=== PATIENT | female | born 1930 | race Caucasian/White ===

== ENCOUNTER 2017-03-26 10:33 | Inpatient (IN) | payer MEDICARE ==
[2017-03-26] VITALS (18 sets, daily range): BP systolic 116–167; BP diastolic 60–95; PULSE 61–78; RESP 10–20; O2SAT 93–98
[~2017-03-26] VITALS: Ht 160 cm; Wt 47.4 kg
[~2017-03-26 10:33] MED LIST: COM10 PO; LEVOXYL75 MCG PO; LORA-781 PO; ONDA4TAB12 PO; RABE20TA PO; TYL325 PO; ULTRAM50 MG PO
[2017-03-26] MEDS: HYDROmorphone 0.5 mg/0.5 mL iSecure Syringe IVPUSH PRN ×5 (10:49→15:40)
--- NOTE | 2017-03-26 11:27 | ED.REPORT ---
HPI-Hip/Pelvis Prob/Inj Date of Service Mar 26, 2017 ED Provider: Oumar Josue MD Patient is an 86 year old female with a hx of cancer, thyroid disease, and HTN who presents to the ED via EMS s/p tripping and falling just prior to arrival. Associated symptoms include L hip pain and lacerations over the left long and ring finger. She denies hitting her head. She denies headache, nausea, vomiting , LOC, or any other symptoms. She received 200 fentanyl en route. She last ate at 0800 this morning. Nursing Notes Stated Complaint: GLF/LEFT HIP PAIN Chief Complaint: Extremity Trauma Nursing Notes Reviewed: Yes Allergies: Coded Allergies: Sulfa (Sulfonamide Antibiotics) (Verified Allergy, Mild, Nausea, 03/26/17) ampicillin (Verified Allergy, Mild, Nausea, 03/26/17) Penicillins (Verified Allergy, Unknown, STOMACH UPSET, 03/26/17) codeine (Verified Allergy, Unknown, 03/26/17) Scheduled ([eye antioxident]) DAILY Acetaminphen-Expunged Drug, Do Not Renew! (Acetaminphen-Expunged Drug, Do Not Renew!) 325 Mg Tablet 650 MG PO HS Glucosamine Sulfate 2Kcl (Glucosamine) 1,000 Mg Tablet 1,500 MG PO DAILY Levothyroxine (Levothyroxine) 50 Mcg Tablet 50 MCG PO DAILY Lipase/Protease/Amylase (Creon DR) 12,000 Unit Capsule 1 CAPSULE PO TIDWM Losartan Potassium (Losartan Potassium) 50 Mg Tablet 50 MG PO DAILY Pilocarpine (Pilocarpine) 5 Mg Tablet 5 MG PO BID Potassium Chloride ER (Klor-Con 10) 10 Meq Tablet 10 MEQ PO DAILY Rabeprazole-Expunged Drug, Do Not Renew! (Rabeprazole-Expunged Drug, Do Not Renew!) 20 Mg Tablet.dr 20 MG PO AM Tramadol-Expunged Drug, Do Not Renew! (Ultram-Expunged Drug, Do Not Renew!) 50 Mg Tab 50 MG PO Q3-4HP Scheduled PRN Lorazepam-Expunged Drug, Do Not Renew! (Lorazepam-Expunged Drug, Do Not Renew!) 2 Mg Tablet 0.25 MG PO PRN Ondansetron (Ondansetron Odt) 4 Mg/Udtablet Tab.rapdis 8 MG PO PRN ProchlorPERazine (Compazine) 10 Mg Tab 10 MG PO PRN Miscellaneous Medications ([ultra drop]) Hypromellose (Systane Gel) 10 Gm Gel..gram. 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 GI: Denies: Nausea, Vomiting Physical Exam Initial Vital Signs Vital Signs (First) Date Time Temp Pulse Resp B/P Pulse Ox O2 Delivery O2 Flow Rate FiO2 03/26/17 10:50 36.2 67 18 122/79 98 Room Air Initial VS: Reviewed, Vital signs normal Head / Eyes: Atraumatic, Normocephalic Abdomen / GI: Soft, Non-tender Skin: Warm, Dry Neurologic: Alert, Oriented, Nonfocal Psychiatric: Mood/affect normal, Behavior normal, Normal thought content Lower Extremity / Pelvis / MS: Neurologic intact, Vascular intact L leg shortened and externally rotated General/Constitutional: Awake, Alert, Well developed Neck: Atraumatic Respiratory / Chest: Breath sounds NL, Breath sounds = bilat, No respiratory distress Cardiovascular: Heart rate NL, Regular rhythm Heart Sounds / Murmur: Positive: Systolic murmur present.. (III/, sternal border ) Wrist / Hand: Neurologic intact, Vascular intact laceration over ulnar aspect of dorsal aspect of long finger laceration over proximal IP join dorsally on ring finger Arthritic changes Interpretation & Diagnostics Lab Results Interpretation Result Diagram: 03/26/17 1309 03/26/17 1309 Test 03/26/17 13:09 White Blood Count 15.6th/mm3 (3.8-10.1) Red Blood Count 3.59mil/mm3 (3.90-5.20) Hemoglobin 8.8g/dL (12.0-15.6) Hematocrit 28.4% (35.0-46.0) Mean Corpuscular Volume 79.1fL (81-100) Mean Corpuscular Hemoglobin 24.5pg (27.0-35.0) Mean Corpuscular Hemoglobin Concent 31.0% (32.0-37.0) Red Cell Distribution Width 16.2% (12.3-15.4) Platelet Count 215bil/L (150-400) Neutrophils (%) (Auto) 92.5% (40-74) Lymphocytes (%) (Auto) 2.9% (14-46) Monocytes (%) (Auto) 4.2% (4-12) Eosinophils (%) (Auto) 0.1% (0-5) Basophils (%) (Auto) 0.1% (0-3) Sodium Level 137mEq/L (134-144) Potassium Level 4.6mEq/L (3.5-5.2) Chloride Level 102mEq/L (97-108) Carbon Dioxide Level 22mmol/L (18-29) Blood Urea Nitrogen 20mg/dL (8-27) Creatinine 0.58mg/dL (0.57-1.00) Estimat Glomerular Filtration Rate 141mL/min (>59) Glucose Level 195mg/dL (60-99) Calcium Level 8.3mg/dL (8.5-10.1) Magnesium Level 2.2mg/dL (1.6-2.6) Total Bilirubin 0.3mg/dL (0.0-1.2) Aspartate Amino Transf (AST/SGOT) 33U/L (0-50) Alanine Aminotransferase (ALT/SGPT) 28U/L (0-32) Alkaline Phosphatase 133U/L (25-165) Total Protein 6.0g/dL (6.4-8.4) Albumin 3.6g/dL (3.4-5.0) X-Ray Chest Interpretation Chest Xray Interpretation: IMPRESSION: No acute pulmonary process. Dictated by: Aaliyah Marrero M.D. on 03/26/2017 at 11:33 Approved by: Aaliyah Marrero M.D. on 03/26/2017 at 11:34 View: Portable, 1 view Interpretation / Wet Read by: Interpret - Radiologist X-Ray Interpretation Xray Interpretation: IMPRESSION: 1. Ventral subluxation of the third DIP joint. While this could be traumatic in origin, there is significant diffuse degenerative changes and subluxation may be secondary to significant osteoarthritic change. Recommend correlation to point tenderness and clinical examination. 2. Calcification adjacent to the base of the second distal phalanx. This is suspected to be related to degenerative heterotopic ossification. However, fracture cannot be excluded and correlation point tenderness is recommended. Dictated by: Aaliyah Marrero M.D. on 03/26/2017 at 11:34 Approved by: Aaliyah Marrero M.D. on 03/26/2017 at 11:37 X-Ray Ordered: Hand left Interpretation / Wet Read by: Interpret - Radiologist Xray Interpretation: IMPRESSION: Comminuted left femoral neck fracture as above. Dictated by: Aaliyah Marrero M.D. on 03/26/2017 at 11:37 Approved by: Aaliyah Marrero M.D. on 03/26/2017 at 11:38 X-Ray Ordered: Pelvis, Hip left Interpretation / Wet Read by: Interpret - Radiologist Procedures Laceration Management Time: 12:44 Procedure Performed by: ED physician (Colby) Consent / Setup / Site Prep: Informed consent provided, Consent from patient , Time-out performed, Hand hygiene observed Location of Wound: 4th digit dorsal aspect over PIP 2 cm long - 6, 5O nylon sutures 3rd digit lateral aspect of DIP joint - DIP joint frozen due to arthritis 2, 5O nylon sutures lateral aspect of 3rd joint by MCP, irregular tear .6 cm long -2, 5O nylon sutures Local Anesthesia: Lidocaine 1% (3 cc ), 27g needle Digital Block: Yes Digit Involved: Middle finger left, Ring finger left Wound Preparation: Normal saline Debridement: None Foreign Body Explore / Removal: Removed multiple (PIP joint ) Repair Skin: ___ O (5), Nylon # Sutures - Skin: 10 (total ) Suture Technique: Simple Post-Procedure / Complications: Antibiotic oint applied, Dressing applied, No complications, Condition improved, Tolerated procedure well, Patient stable Re-Eval/Medical Decision Re-Evaluation/Progress : Time of Eval: 11:50 Re-Evaluation/Progress Note: Discussed plan for admission. Patient understands and agrees with plan. All questions addressed at this time. Consultation #1: Referral / Consult Name: Sean Basurto DO Consulted With: Orthopedic Call Returned at: 12:10 Game And Fish Protector: Agrees with eval, Agrees with plan Note: Discussed patient's case. Agrees to consult. Consultation #2: Referral / Consult Name: Rico Carroll MD Consulted With: Hospitalist Call Returned at: 12:38 Game And Fish Protector: Will see patient, Agrees with eval, Agrees with plan, Accepts admit Note: Discussed pt's case. Accepts admit. Counseled Regarding: Diagnosis, Lab results, Need for admission Discharge & Departure Impression: Primary Impression: Femoral neck fracture Encounter type: initial encounter Fracture type: closed Laterality: left Qualified Code: S72.002A - Fracture of unspecified part of neck of left femur, initial encounter for closed fracture Disposition: ADMITTED TO HOSPITAL Discharge Condition All VS Reviewed: Yes Condition: Stable Referrals: Giacomo Sood MD (PCP) Scribe Attestation Portions of this note were transcribed by Genevieve Bradshaw. I, Dr. Josue personally performed the history, physical exam and medical decision-making; I reviewed and confirmed the accuracy of the information in the transcribed note. Signed by: Genevieve Bradshaw 03/26/2017, 1240 copies to: Giacomo Sood MD, Donald L MD Mar 26, 2017 11:27 GENEVIEVE BRADSHAW Mar 26, 2017 11:48
--- NOTE | 2017-03-26 11:35 | DRSVH ---
PROCEDURE: X-RAY CHEST ONE VIEW, PORTABLE ([id number]) INDICATIONS: fall, hip pain TECHNIQUE: One view of the chest was acquired. COMPARISON: [facility], , CHEST 2VW, 01/01/2014, 12:07. FINDINGS: Surgical changes and devices: Clips are present overlying the left hemithorax. Lungs and pleura: No pleural effusions or pneumothorax. Right basilar calcified granuloma is present . Mediastinum: Mediastinal contours appear normal. Heart size is normal. Bones and chest wall: No suspicious bony lesions. Overlying soft tissues appear unremarkable. IMPRESSION: No acute pulmonary process. Dictated by: Aaliyah Marrero M.D. on 03/26/2017 at 11:33 Approved by: Aaliyah Marrero M.D. on 03/26/2017 at 11:34
--- NOTE | 2017-03-26 11:38 | DRSVH ---
PROCEDURE: X-RAY LEFT HAND, MINIMUM THREE VIEWS ([id number]) INDICATIONS: fall, pain TECHNIQUE: 3 views of the hand(s) acquired. COMPARISON: None. FINDINGS: Bones: There is ventral subluxation of the third DIP joint. There is a calcification adjacent to the base of the second distal phalanx. Carpal bones are normally aligned. No suspicious bony lesions. S evere degenerative changes are present particularly in the DIP joints. Soft tissues: No suspicious soft tissue calcifications. IMPRESSION: 1. Ventral subluxation of the third DIP joint. While this could be traumatic in origin, there is sign ificant diffuse degenerative changes and subluxation may be secondary to significant osteoarthritic c hange. Recommend correlation to point tenderness and clinical examination. 2. Calcification adjacent to the base of the second distal phalanx. This is suspected to be related t o degenerative heterotopic ossification. However, fracture cannot be excluded and correlation point t enderness is recommended. Dictated by: Aaliyah Marrero M.D. on 03/26/2017 at 11:34 Approved by: Aaliyah Marrero M.D. on 03/26/2017 at 11:37
--- NOTE | 2017-03-26 11:39 | DRSVH ---
PROCEDURE: X-RAY PELVIS W/LAT HIP (LT) ([id number]) INDICATIONS: fall, hip pain TECHNIQUE: AP pelvis with lateral view(s) of the left hip(s). COMPARISON: None. FINDINGS: Bones: There is a comminuted fracture of the left femoral neck with an approximate 4.6 cm overlap of fracture fragments. There is no dislocation at the hip joint. Soft tissues: The visualized bowel gas pattern is normal. No suspicious soft tissue calcifications. IMPRESSION: Comminuted left femoral neck fracture as above. Dictated by: Aaliyah Marrero M.D. on 03/26/2017 at 11:37 Approved by: Aaliyah Marrero M.D. on 03/26/2017 at 11:38
[2017-03-26] MEDS ORDERED: Ondansetron 2 mg/mL 2 mL Inj ONE (11:48)
[2017-03-26 13:21] LABS: BASOPHILS % (AUTO) 0.1 % (0-3); EOSINOPHILS % (AUTO) 0.1 % (0-5); MONOCYTES % (AUTO) 4.2 % (4-12); Mean Corpuscular Hemoglobin 24.5 pg (27.0-35.0); Mean Corpuscular Volume 79.1 fL (81-100); NEUTROPHILS % (AUTO) 92.5 % (40-74); Platelet Count 215 bil/L (150-400)
[2017-03-26] MEDS ORDERED: Dexamethasone 4 mg/mL Inj ONE (13:39)
[2017-03-26] MEDS ORDERED: MetoCLOpramide 5 mg/mL 2 mL Inj ONE (13:39)
[2017-03-26] MEDS ORDERED: Succinylcholine Chloride 20 mg/mL 5 mL Inj ONE (13:39)
[2017-03-26] MEDS ORDERED: fentaNYL-PF 50 mCg/mL 2 mL Inj ONE (13:39)
[2017-03-26] MEDS ORDERED: EPHEDrine Sulfate 50 mg/mL Inj ONE (13:39)
[2017-03-26] MEDS ORDERED: Propofol 10,000 mCg/mL 20 mL Inj ONE (13:39)
[2017-03-26] MEDS ORDERED: Rocuronium 10 mg/mL 5 mL Inj ONE (13:39)
[2017-03-26 13:42] LABS: Magnesium 2.2 mg/dL (1.6-2.6)
[2017-03-26] MEDS ORDERED: Ondansetron 2 mg/mL 2 mL Inj IVPUSH PRN ×2 (14:10→17:30)
[2017-03-26] MEDS ORDERED: Polyethylene Glycol (PEG) 17 Gm Powder PO PRN ×2 (14:10→19:55)
[2017-03-26] MEDS ORDERED: Alum-Mag Hydrox-Simeth 30 mL Suspension PO PRN (14:10)
--- NOTE | 2017-03-26 15:21 | PCM.HPMED ---
Subjective Date of Service Mar 26, 2017 Primary Provider: Admitting Physician: Rico Carroll MD Primary Care Physician: Giacomo Sood MD Attending Physician: Rico Carroll MD Chief Complaint: Hip Fracture History of Present Illness: Patient is an 86 year old female with a hx of pancreatic cancer (s/p whipples 5 years ago, in remission), thyroid disease, and HTN who presents to the ED via EMS s/p tripping and falling just prior to arrival. She said she was watering her garden when she tripped and fell on her left hip resulting in the trauma at about 9:30 am. She denies any chest pain. Does complain of abdominal cramping, associated with her post whipple's complication. Takes Creon at home. She denies any cardiac history. Fully functional at baseline. Does add that she has chronic history of neck pain 2/2 osteoarthritis, and was scheduled to meet spine surgeon for possible surgery. No other complains at this point. Allergies Coded Allergies: Sulfa (Sulfonamide Antibiotics) (Verified Allergy, Mild, Nausea, 03/26/17) ampicillin (Verified Allergy, Mild, Nausea, 03/26/17) Penicillins (Verified Allergy, Unknown, STOMACH UPSET, 03/26/17) codeine (Verified Allergy, Unknown, 03/26/17) Constitutional: No: Chills, Fever, Malaise, Other, Sweats, Weakness Eyes: Denies: Blurred Vision, Conjunctive Inflammation, Double Vision, Eyelid Inflammation, Other, Pain, Pigmentosa, Redness, Retinitis, Vision Changes ENT: Denies: Dental Problems, Dysphagia, Ear Discharge, Ear Pain, Hoarseness, Membranes Dry, Nasal Congestion, Nose Discharge, Nose Pain, Other, Throat Pain, Tinnitus, Ulcers/Sores in Mouth Cardiovascular: Denies: Chest Pain, Edema, Lt Headedness, Orthopnea, Other, Palpitations, Paroxysmal Noc. Dyspnea Respiratory: Denies: Cough, Hemoptysis, Other, Pleuritic Chest Pain, SOB with Exertion, Shortness of Breath, Sputum, Wheezing Gastrointestinal: Reports: Nausea, Denies: Abdominal Pain, Change in Appetite, Constipation, Diarrhea, Heartburn , Hematochezia, Melena, Other, Use of Laxatives, Vomiting Genitourinary: Denies: Anuria, Change in Frequency, Dysuria, Hematuria, Incontinence, Nocturia, Other, Retention Musculoskeletal: Reports: Neck Pain, Other (Left hip pain ) Skin: Denies: Bruising, Dry or Flakiness, Jaundice, Lesions, Other, Rash, Scars , Ulcers Neurological: Denies: Change in Speech, Confusion, Dizziness, Dyskinesia, Hyper Reflexia, Incoordination, Numbness, Other, Seizures, Somnolence, Tremors, Weakness Psychologic: Denies: Agitation, Disorientation, Excitation, Giddiness, Hostile , Insomnia, Instability, Jaylyn, Nervousness, Night Terrors, Other, Perseveration , Phobia, Sexual Disturbances Endocrine: Denies: Change in Appitite, Diaphoresis, Intolerent to Heat/Cold, Polydipsea, Polyuria PMH Pancreatic cancer s/p whipple's 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 Thyroid disease HTN hiatal hernia GERD Breast cancer Melanoma Surgical History whipple's bladder repair lumpectomy Reports: Appendectomy, Cataract surgery, Cholecystectomy, Tonsillectomy Social History Hx Alcohol Use: Yes ("very rarely") Hx Substance Use: No Hx Tobacco Use: No (QUIT MID 'S) Smoking Status: Former Smoker Exam Vital Signs Vital Sign - Last Date Time Temp Pulse Resp B/P Pulse Ox O2 Delivery O2 Flow Rate FiO2 03/26/17 15:09 36.5 70 20 138/63 97 Room Air Exam Initial VS: Reviewed, Vital signs normal Head / Eyes: Atraumatic, Normocephalic Abdomen / GI: Soft, Non-tender Skin: Warm, Dry Neurologic: Alert, Oriented, Nonfocal Psychiatric: Mood/affect normal, Behavior normal, Normal thought content Lower Extremity / Pelvis / MS: Neurologic intact, Vascular intact L leg shortened and externally rotated General/Constitutional: Awake, Alert, Well developed Neck: Atraumatic Respiratory / Chest: Breath sounds NL, Breath sounds = bilat, No respiratory distress Cardiovascular: Heart rate NL, Regular rhythm Heart Sounds / Murmur: Positive: Systolic murmur present.. (III/, sternal border ) Wrist / Hand: Neurologic intact, Vascular intact Lab and Diagnostics Result Diagram: 03/26/17 1309 03/26/17 1309 X-Rays, CTs and MRIs XR left hip FINDINGS: Bones: There is a comminuted fracture of the left femoral neck with an approximate 4.6 cm overlap of fracture fragments. There is no dislocation at the hip joint. Soft tissues: The visualized bowel gas pattern is normal. No suspicious soft tissue calcifications. IMPRESSION: Comminuted left femoral neck fracture as above. 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
[2017-03-26] MEDS ORDERED: 0.9% Sodium Chloride 1,000 ML IV SCH (15:40)
[2017-03-26] MEDS ORDERED: LEVO50TA6 PO (15:57)
[2017-03-26] MEDS ORDERED: PILO5TAB2 PO (16:20)
[2017-03-26] MEDS ORDERED: [UNRECOGNIZED DRUG - OTHER] (16:20)
[2017-03-26] MEDS ORDERED: HYPR10GE4 OP (16:20)
[2017-03-26] MEDS ORDERED: LOSA50TA37 PO (16:20)
[2017-03-26] MEDS ORDERED: GLUC100016 PO (16:20)
[2017-03-26] MEDS ORDERED: LIPA1CAP3 PO (16:20)
[2017-03-26] MEDS ORDERED: [UNRECOGNIZED DRUG - OTHER] (16:20)
[2017-03-26] MEDS ORDERED: POTA10TA7 PO (16:20)
--- NOTE | 2017-03-26 16:20 | PCM.HPANE ---
Patient Data Date of Service: Mar 26, 2017 Surgeon Admitting Provider:Rico Carroll MD Attending Provider:Rico Carroll MD Primary Care Physician:Giacomo Sood MD Other Provider: Reason for Visit Left Femoral Neck Fracture Ht/WT & BMI Height (Feet): 5 Height (Inches): 3.00 Weight (Kilograms): 47.400 Body Mass Index 18.52 Allergies Coded Allergies: Sulfa (Sulfonamide Antibiotics) (Verified Allergy, Mild, Nausea, 03/26/17) ampicillin (Verified Allergy, Mild, Nausea, 03/26/17) Penicillins (Verified Allergy, Unknown, STOMACH UPSET, 03/26/17) codeine (Verified Allergy, Unknown, 03/26/17) Past Anesthesia History Anesthesia History: Denies:: Fam Anesthesia Reaction, Fam Malignant Hypertherm , Malignant Hyperthermia Diabetes History Hx Diabetes?: No MRSA MRSA: No Medications Hypertension Medication: No Home Meds Incl Beta Emanuel: No Reported Medications [ultra drop] No Conflict Check 03/26/17 Hypromellose (Systane Gel)10 Gm Gel..gram.10 Gm OP 03/26/17 [eye antioxident] No Conflict Check Daily 03/26/17 Potassium Chloride ER (Klor-Con 10)10 Meq Nbgyri91 Meq PO DAILY Ref 0 03/26/17 Losartan Potassium 50 Mg Wdvpbt50 Mg PO DAILY 03/26/17 Glucosamine Sulfate 2Kcl (Glucosamine)1,000 Mg Tablet1,500 Mg PO DAILY 03/26/17 Lipase/Protease/Amylase (Creon DR)12,000 Unit Capsule1 Capsule PO TIDWM 03/26/17 [place]ocarpine 5 Mg Tablet5 Mg PO BID 03/26/17 Levothyroxine 50 Mcg Bnwzgr44 Mcg PO DAILY Ref 0 03/26/17 Lorazepam-Expunged Drug, Do Not Renew! 2 Mg Tablet0.25 Mg PO PRN 06/26/12 Ondansetron (Ondansetron Odt)4 Mg/Udtablet Tab.rapdis8 Mg PO PRN 06/26/12 ProchlorPERazine (Compazine)10 Mg Tab10 Mg PO PRN 06/26/12 Acetaminphen-Expunged Drug, Do Not Renew! 325 Mg Qspkgi817 Mg PO HS 10/10/10 Tramadol-Expunged Drug, Do Not Renew! (Ultram-Expunged Drug, Do Not Renew!)50 Mg Tab50 Mg PO Q3-4HP 10/10/10 Rabeprazole-Expunged Drug, Do Not Renew! 20 Mg Tablet.dr20 Mg PO AM 10/10/10 Discontinued Reported Medications Levothyroxine-Expunged Drug, Do Not Renew! (Levoxyl-Expunged Drug, Do Not Renew! )75 Mcg Nlvuas74 Mcg PO AM 10/10/10 History History of ENT Problems?: Yes HEENT History: Positive for:: Cataracts (but removed) Denies:: Dysphagia Hearing Problem Sinus Problem TMJ Denture Type: None Teeth Condition: Tooth Decay Hx of Heart Problems?: Yes Cardiovascular History: Positive for:: Hypertension (History) Denies:: Abdominal Aortic Aneurism Atrial Fibrillation Cardiac Surgery Chest Pain Congestive Heart Failure Coronary Artery Disease Edema Heart Murmur Irregular Heartbeat Pacemaker Rheumatic Fever Thrombophlebitis Valvular Heart Disease Other Cardiac History: no chest pain or SOB Hx of Respiratory Problem?: No Respiratory History: Positive for:: Dyspnea (w/ moderate activity) Denies:: Asthma COPD Chest Surgery Cough Emphysema Hemoptysis Oxygen Administration Pneumonia Pulmonary Embolism Tuberculosis Use of C-PAP Machine Hx Neurologic Problems?: No Neurological History: Positive for:: Dizziness (diuretic taken away recently, now is fine) Denies:: Alzheimer's Disease CVA Dementia Headaches Multiple Sclerosis Parkinson's Disease Seizures TIA Hx of GI Problems?: Yes Gastrointestinal History: Positive for:: Gastroesphageal Reflux Hx of Problems?: No Genitourinary History: Denies:: HX of Hemodialysis Kidney Stones Urinary Tract Infection Female Hx: Denies:: Currently Endometriosis Pelvic Inflammatory Problems with Breasts? Skin History: Denies:: History Skin Disorders? Pressure Ulcers Hx Musculoskeletal Problems?: Yes Musculoskeletal History: Positive for:: Musculoskeletal Trauma (acute traumatic injury 03/26/17) Denies:: Back Injury Degenerative Joint Joint Replacement Systemic Lupus Hx of Psycho/Social Problems?: Yes Psycho Social History: Denies:: Anxiety Bipolar Disorder Hx Depression Suicide Attempt Hx Surgeries?: Yes (GALLBLADDER OUT,APPY, BLADDER REPAIR, LUMPECTOMY, TONSILECTOMY ) Hx Any Other Health Problems?: No Other History: Positive for:: Cancer (breast and melanoma, pancreatic) Thyroid Disease History Blood Transfusions: Positive for:: Accept Blood Products? Denies:: Blood Transfusions Hx Diabetes: No Hx Alcohol Use: Yes ("very rarely")Hx Substance Use: No Smoking Status: Former Smoker Have You Smoked inLast 12 mo: No (quit 1992, after 40 pack yrs) Stop/Bang Treated for Sleep Apnea?: No Do You Have a CPAP Machine?: No S-Snoring: Do You Snore Loudly: No T-Tired: feel tired, fatigued: Yes O-Obsered: Observed not breath: No P-Blood Pressure: treated: Yes B- Body Mass Index > 35 kg/m2: No A- Age over 50: Yes N- Neck Large Circumference: No G- Gender Male: No MYRON Total Score: 2 MYRON Risk Assessment: Low Risk, <3 Yes Risk Assessment Category Category 1A: Patient has history of documented sleep apnea, and HAS NOT received any narcotic, sedative or anesthesia administration during this stay. Category 1B: Patient has history of documented sleep apnea, and HAS received any narcotic , sedative or anesthesia administration during this stay Category 2: Patient has SUSPECTED Obstructive Sleep Apnea, and HAS received any narcotic , sedative or anesthesia administration during this stay. Category 3: Patient has SUSPECTED Obstructive Sleep Apnea and HAS NOT received narcotic, sedative or anesthesia administration during this stay. Category 4: Outpatient in Procedural Areas with known sleep apnea or who screen positive for High Risk via the STOP/BANG questionnaire. Exam Exam Vital Signs Vital Signs Date Time Temp Pulse Resp B/P Pulse Ox O2 Delivery O2 Flow Rate FiO2 03/26/17 15:09 36.5 70 20 138/63 97 Room Air 03/26/17 14:17 61 17 116/61 95 Room Air 03/26/17 10:50 36.2 67 18 122/79 98 Room Air General Appearance: Alert, Oriented X3, Cooperative, No Acute Distress HEENT/AIRWAY: MP 3, Neck Movement (FROM without paresthesia), Mouth Opening (3) , Other (TMD3) Lungs: Normal Air Movement, Diminished Heart: Exam Unremarkable, Regular Rate/Rhythm, Normal S1, Normal S2, No Murmurs /Rubs/Gallops Meds/Labs/Diagnostics Admission Meds Current Medications Ondansetron HCl (Zofran Inj) 4 mg STK-MED ONCE .ROUTE Last administered on 03/26t 11:54; Start 03/26/17 at 11:48; Stop 7/18/17 at 11:49; Status DC Labs Test 03/26/17 13:09 White Blood Count 15.6th/mm3 (3.8-10.1) Red Blood Count 3.59mil/mm3 (3.90-5.20) Hemoglobin 8.8g/dL (12.0-15.6) Hematocrit 28.4% (35.0-46.0) Mean Corpuscular Volume 79.1fL (81-100) Mean Corpuscular Hemoglobin 24.5pg (27.0-35.0) Mean Corpuscular Hemoglobin Concent 31.0% (32.0-37.0) Red Cell Distribution Width 16.2% (12.3-15.4) Platelet Count 215bil/L (150-400) Neutrophils (%) (Auto) 92.5% (40-74) Lymphocytes (%) (Auto) 2.9% (14-46) Monocytes (%) (Auto) 4.2% (4-12) Eosinophils (%) (Auto) 0.1% (0-5) Basophils (%) (Auto) 0.1% (0-3) Sodium Level 137mEq/L (134-144) Potassium Level 4.6mEq/L (3.5-5.2) Chloride Level 102mEq/L (97-108) Carbon Dioxide Level 22mmol/L (18-29) Blood Urea Nitrogen 20mg/dL (8-27) Creatinine 0.58mg/dL (0.57-1.00) Estimat Glomerular Filtration Rate 141mL/min (>59) Glucose Level 195mg/dL (60-99) Calcium Level 8.3mg/dL (8.5-10.1) Magnesium Level 2.2mg/dL (1.6-2.6) Total Bilirubin 0.3mg/dL (0.0-1.2) Aspartate Amino Transf (AST/SGOT) 33U/L (0-50) Alanine Aminotransferase (ALT/SGPT) 28U/L (0-32) Alkaline Phosphatase 133U/L (25-165) Total Protein 6.0g/dL (6.4-8.4) Albumin 3.6g/dL (3.4-5.0) Plan Impression Patient chart reviewed, patient interviewed and anesthestic plan with risks, benefits, and alternatives discussed, and informed consent obtained. NPO per Anesth. Guidelines: Yes ASA Physical Status: ASA3 Plus Emergency Anesthetic Plan: GA Bene/Risks/Altern/Consents: Yes HP Complete Prior to Induction: Yes Frakn William MD Mar 26, 2017 16:20
--- NOTE | 2017-03-26 16:33 | CONS ---
[address] [address] CONSULTATION REPORT PATIENT: KARTIK MCGHEE : 1930 MR#: [id number] ADMIT: 03/26/2017 JOB ID: [id number] DATE OF SERVICE: 03/26/2017 CHIEF COMPLAINT: Left hip pain. HISTORY OF PRESENT ILLNESS: The patient is an 86-year-old female, who was working on watering her tomato plants when she tripped backwards over a hose and fell at her yard. She had immediate onset of left hip pain and was unable to ambulate after the fall. She normally is very active and ambulates without aids. She is active in the community and drives herself, lives independently and goes to water aerobics exercise classes. She has had severe acute pain in the left hip as a result of the injury. PAST MEDICAL HISTORY: Significant for pancreatic cancer which was treated with a Whipple procedure about five years ago. 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 REVIEW OF SYSTEMS: Negative for chest pain, shortness of breath, or other cardiovascular symptoms. No excessive swelling, etc. She does have some pain in her neck as a result of her cervical spine degeneration. PHYSICAL EXAMINATION: Blood pressure 138/63, pulse rate 70, respirations 20, temperature 36.5. She is alert and cooperative, in no acute distress. Left hip is shortened and externally rotated. Her skin overlying the hip is intact. She is able move her toes and sensation is intact, although she states that she has some numbness at baseline. Her foot is warm, pink, and well perfused with dorsalis pedis pulse +2. She has some scratches as a result of falling into the delmy bushes. IMAGING: X-rays demonstrate a left intertrochanteric hip fracture which appears to have some subtrochanteric extension. ASSESSMENT: Left intertrochanteric hip fracture with subtrochanteric extension. PLAN: We discussed treatment options for this and I recommend a left hip intramedullary nailing. We discussed the risks, benefits, and possible complications of the procedure. All questions were answered and she would like to proceed. We will plan for this today.
[2017-03-26] MEDS ORDERED: Tranexamic Acid Inj 1,000 MG in 0.9% Sodium Chloride 100 ML IV ONE ×2 (16:47→16:50)
[2017-03-26] MEDS ORDERED: Tranexamic Acid 100 mg/mL 10 mL Inj ONE (16:49)
[2017-03-26] MEDS ORDERED: 0.9% Sodium Chloride 200 ML ONE (16:50)
[2017-03-26] MEDS ORDERED: [UNRECOGNIZED DRUG - REMARK] PO SCH (17:05)
[2017-03-26] MEDS ORDERED: Lactated Ringer's 1,000 ML IV ONE (17:07)
[2017-03-26] MEDS ORDERED: Lactated Ringer's 500 ML IV PRN (17:29)
[2017-03-26] MEDS ORDERED: Lactated Ringer's 1,000 ML IV SCH (17:29)
[2017-03-26] MEDS ORDERED: AMYLASE PO SCH (17:30)
[2017-03-26] MEDS ORDERED: fentaNYL-PF 50 mCg/mL 2 mL Inj IVPUSH PRN (17:30)
[2017-03-26] MEDS ORDERED: MetoCLOpramide 5 mg/mL 2 mL Inj IVPUSH PRN (17:30)
[2017-03-26] MEDS ORDERED: EPHEDrine Sulfate 50 mg/mL Inj IVPUSH PRN (17:30)
[2017-03-26] MEDS ORDERED: LIPASE PO SCH (17:30)
[2017-03-26] MEDS ORDERED: PROTEASE PO SCH (17:30)
[2017-03-26] MEDS ORDERED: Dexamethasone 4 mg/mL Inj IVPUSH PRN (17:30)
[2017-03-26] MEDS ORDERED: Phenylephrine 10,000 mCg/mL Inj IVPUSH PRN (17:30)
[2017-03-26] MEDS ORDERED: Ropivacaine-PF 0.5% 30 mL Inj INFILTRATE ONE (17:34)
--- NOTE | 2017-03-26 18:14 | NUR ---
Transfer/Off the floor Pt. was transferred to room 1023 [facility] from the ED and arrived at about 1515. Pt. was brought in for a left femoral fracture after tripping over her garden hose at home. Pt. is A&Ox3, RA, VS stable. Pt. arrived with medium pain 5/10 but with moving and turning into her bed in room 1023 Pts. pain level increased to 10/10 and PRN IV dilaudid was given. Zofran PRN IV push was also given because Pt. felt some nausea. Pt. states she feels spasms that go up her left leg and that is what hurts the most. Pt. is NPO and will go for a procedure at about [address] Basurto. Pt. at this time is not back from procedure.
[2017-03-26] MEDS ORDERED: Ketorolac 15 mg/mL Inj IVPUSH PRN (19:55)
[2017-03-26] MEDS ORDERED: HYDROmorphone 2 mg/mL Inj IVPUSH PRN (19:55)
[2017-03-26] MEDS ORDERED: Magnesium Hydroxide 10 mL Oral Concentration PO PRN (19:55)
[2017-03-26] MEDS ORDERED: Sodium Biphos-Phos 133 mL Enema RECTAL PRN (19:55)
[2017-03-26] MEDS ORDERED: diphenhydrAMINE 25 mg Capsule PO PRN (19:55)
[2017-03-26] MEDS: HYDROmorphone 1 mg/mL Inj IVPUSH PRN ×4 (20:00→21:37)
[2017-03-26] MEDS: Senna-Docusate 8.6-50 mg Tablet PO SCH (20:30)
--- NOTE | 2017-03-26 20:58 | OP ---
[address] [address] OPERATIVE REPORT PATIENT: KARTIK MCGHEE : 1930 MR#: [id number] ADMIT: 03/26/2017 JOB ID: [id number] DATE OF SURGERY: 03/26/2017 SURGEON: Sean Basurto DO. PREOPERATIVE DIAGNOSIS(ES): Left subtrochanteric hip fracture. POSTOPERATIVE DIAGNOSIS(ES): Left subtrochanteric hip fracture. PROCEDURE: Left femur open reduction and internal fixation with left hip cephalomedullary nailing. ANESTHESIA: General. INDICATIONS: The patient is an 86-year-old female who fell backwards over a hose today at her home and sustained a comminuted left intertrochanteric/subtrochanteric femur fracture. We discussed treatment options for this and I recommended surgical treatment with a left hip nailing. We discussed the risks, benefits, and possible complications of the surgery including but not limited to injury to nerves and vessels, infection, bleeding, incomplete relief of symptoms, deep venous thrombosis, hardware irritation, nonunion. The patient had a good understanding. All questions were answered and she wished to proceed. PROCEDURE IN DETAIL: The patient was brought to the operating room. She was given a preoperative antibiotic 1 g TXA preoperatively and a general anesthetic. The left hip was then reduced with a combination of traction and adduction and internal rotation. The hip was then sterilely prepped and draped. An incision was made just above the greater trochanter in line with the femur. A guidepin was introduced from the tip of the trochanter into the femur. This was over-reamed and then a long ball-tipped guidewire was placed down the femur crossing the fracture site. The proximal reamer was then used and then the canal was opened up distally, reaming up to a 13.5 or a 12 mm nail. The nail was inserted. However, upon nail insertion the fracture displaced, leaving the fracture in significant valgus and I therefore removed the nail, let the guide tiny in place. I made an incision over the lateral thigh and dissection was carried down through the subcutaneous tissue through the iliotibial band and the vastus lateralis onto the femur. The fracture fragments, of which there were several, were reduced with bone reduction forceps and then a cerclage cable was placed to effect a reduction. I then reamed again over the guidewire proximally and then inserted the 130-degree, 12 mm diameter Synthes TFN nail and impacted this into position. I placed the guide for the lag screw. I had to place the lag screw slightly superior in order to avoid the cable, but I felt that this was acceptable position. The lag screw guidewire pin was placed into the center-center position in the femoral head. This was measured, over-reamed, and then a tap was used. The patient had quite hard bone and an 85 mm lag screw was inserted. Had excellent fixation. Next, two distal locks were placed distally using a perfect coquille technique as I felt that the fracture was fairly unstable and could benefit from additional fixation distally to prevent collapse. Unfortunately, the 2nd lag screw became stripped and I used the 3rd oblique hole distally in order to have a total of two distal locking screws. The wounds were then irrigated and fluoroscopic images demonstrated satisfactory alignment and position of the fracture and hardware. The vastus lateralis fascia was then closed with 0-Vicryl in a running fashion. The iliotibial band was closed with 0-Vicryl. The subcu was closed with 2-0 Vicryl and the skin was closed with abraham. Naropin was added as an adjunct local anesthetic. Sterile dressings were applied. Patient tolerated the procedure well. Blood loss was 300 cc. POSTOPERATIVE PROTOCOL: Have the patient remain toe-touch weightbearing on the left lower extremity for a period of six weeks. Will plan to use Lovenox for DVT prophylaxis and Ronks 5/325 for pain.
[2017-03-26] MEDS: Ondansetron 2 mg/mL 2 mL Inj IVPUSH PRN (21:25)
--- NOTE | 2017-03-26 22:00 | NUR ---
post-op: pt arrived to [facility] Room 1023 at apprx 2200. pt awake and talking. left hip dressing CDI. pt nauseated when she arrived to floor, and medicated with prn zofran, and able to report some relief. IV pain medication given. Ice packs to left hip leg. CPOX in place. will continue to monitor.
[2017-03-26 22:19] LABS: APPEARANCE,URINE HAZY (CLEAR,HAZY); COLOR,URINE YELLOW (YELLOW); OCCULT BLOOD,URINE NEGATIVE (NEGATIVE); UROBILINOGEN,URINE NORMAL (NORMAL)
[2017-03-26] MEDS: 0.9% Sodium Chloride 1,000 ML IV SCH (23:17)
[2017-03-27] VITALS (11 sets, daily range): BP systolic 113–155; BP diastolic 65–83; PULSE 67–97; RESP 16–20; O2SAT 97–100
[2017-03-27] MEDS: CeFAZolin Inj 1 GM in IV Premix 1 EACH IV SCH ×2 (00:33→08:17)
[2017-03-27] MEDS: HYDROcodone-APAP 5-325 mg Tablet PO PRN ×3 (00:44→19:54)
[2017-03-27] MEDS: hydrOXYzine Pamoate 25 mg Capsule PO PRN ×5 (00:45→19:52)
[2017-03-27] MEDS: Sodium Chloride LOK Flush 10 mL Syringe IV SCH ×3 (00:51→17:39)
[2017-03-27] MEDS: HYDROmorphone 1 mg/mL Inj IVPUSH PRN ×2 (04:22→12:00)
[2017-03-27] MEDS: Acetaminophen IV 1,000 MG in IV Premix 1 EACH IV PRN ×2 (04:32→10:45)
[2017-03-27] MEDS: Ondansetron 2 mg/mL 2 mL Inj IVPUSH PRN (04:32)
[2017-03-27 07:12] LABS: BASOPHILS % (AUTO) 0 % (0-3); EOSINOPHILS % (AUTO) 0 % (0-5); MONOCYTES % (AUTO) 8.1 % (4-12); Mean Corpuscular Hemoglobin 24.8 pg (27.0-35.0); Mean Corpuscular Volume 80.1 fL (81-100); NEUTROPHILS % (AUTO) 85.6 % (40-74); Platelet Count 174 bil/L (150-400)
[2017-03-27] MEDS: 0.9% Sodium Chloride 1,000 ML IV SCH ×2 (07:17→15:55)
[2017-03-27 07:37] LABS: Unsaturated Iron Binding 361.3 ug/dL
[2017-03-27] MEDS: Pantoprazole 20 mg ER24 Tablet PO SCH (08:17)
[2017-03-27] MEDS: Pancrelipase 5,000 Unit Capsule PO SCH ×3 (08:17→17:39)
[2017-03-27] MEDS: Senna-Docusate 8.6-50 mg Tablet PO SCH ×2 (08:19→20:29)
[2017-03-27] MEDS ORDERED: POTASSIUM CHLORIDE 10 MEQ PO SCH (08:30)
[2017-03-27] MEDS ORDERED: diphenhydrAMINE 25 mg Capsule PO ONE (09:10)
--- NOTE | 2017-03-27 10:11 | PCM.PNORTH ---
Subjective Date of Service: Mar 27, 2017 Visit Information: Reason for Visit Left Femoral Neck Fracture Surgery/Surgery Date left femur IM nailing 03/26/2017 Post-Op Day # 1 Date of Admission: Mar 26, 2017 at 13:38 Hospital Day # Subjective The patient had some nausea last night. The patient was up out of bed to bedside commode this morning. She felt a little weak and dizzy. She has decrease blood count this morning. One unit of packed red blood cells has been ordered. Patient is a anxious to get up and moving with physical therapy. She understands that she will likely need group home facility to continue her rehabilitation following the hospital stay. Patient has all adaptive equipment for home. Pain Management: PO, IV Push Objective Exam Objective Patient is seen sitting up in bed Vital Signs and I/O Vital Sign - Last Date Time Temp Pulse Resp B/P Pulse Ox O2 Delivery O2 Flow Rate FiO2 03/27/17 07:53 36.8 67 18 142/74 100 Nasal Cannula 2.00 Intake and Output 03/26/17 03/26/17 03/27/17 Cumulative From/Thru 15:00 23:00 07:00 03/26/17 10:50 - 03/27/17 06:13 Intake Total 500 ml 944 ml 1444 ml Output Total 200 ml 450 ml 650 ml Balance 300 ml 494 ml 794 ml Intake Oral 0 ml 250 ml 250 ml IV Total 500 ml 694 ml 1194 ml Output Urine Total 200 ml 450 ml 650 ml Lab & Micro Results Laboratory Tests Test 03/26/17 13:09 03/26/17 20:58 03/27/17 06:55 White Blood Count 15.6th/mm3 (3.8-10.1) 8.2th/mm3 (3.8-10.1) Red Blood Count 3.59mil/mm3 (3.90-5.20) 2.86mil/mm3 (3.90-5.20) Hemoglobin 8.8g/dL (12.0-15.6) 7.1g/dL (12.0-15.6) Hematocrit 28.4% (35.0-46.0) 22.9% (35.0-46.0) Mean Corpuscular Volume 79.1fL (81-100) 80.1fL (81-100) Mean Corpuscular Hemoglobin 24.5pg (27.0-35.0) 24.8pg (27.0-35.0) Mean Corpuscular Hemoglobin Concent 31.0% (32.0-37.0) 31.0% (32.0-37.0) Red Cell Distribution Width 16.2% (12.3-15.4) 16.0% (12.3-15.4) Platelet Count 215bil/L (150-400) 174bil/L (150-400) Neutrophils (%) (Auto) 92.5% (40-74) 85.6% (40-74) Lymphocytes (%) (Auto) 2.9% (14-46) 6.2% (14-46) Monocytes (%) (Auto) 4.2% (4-12) 8.1% (4-12) Eosinophils (%) (Auto) 0.1% (0-5) 0% (0-5) Basophils (%) (Auto) 0.1% (0-3) 0% (0-3) Sodium Level 137mEq/L (134-144) 139mEq/L (134-144) Potassium Level 4.6mEq/L (3.5-5.2) 4.5mEq/L (3.5-5.2) Chloride Level 102mEq/L (97-108) 104mEq/L (97-108) Carbon Dioxide Level 22mmol/L (18-29) 22mmol/L (18-29) Blood Urea Nitrogen 20mg/dL (8-27) 18mg/dL (8-27) Creatinine 0.58mg/dL (0.57-1.00) 0.58mg/dL (0.57-1.00) Estimat Glomerular Filtration Rate 141mL/min (>59) 141mL/min (>59) Glucose Level 195mg/dL (60-99) 231mg/dL (60-99) Calcium Level 8.3mg/dL (8.5-10.1) 7.8mg/dL (8.5-10.1) Magnesium Level 2.2mg/dL (1.6-2.6) Total Bilirubin 0.3mg/dL (0.0-1.2) 0.3mg/dL (0.0-1.2) Aspartate Amino Transf (AST/SGOT) 33U/L (0-50) 28U/L (0-50) Alanine Aminotransferase (ALT/SGPT) 28U/L (0-32) 21U/L (0-32) Alkaline Phosphatase 133U/L (25-165) 103U/L (25-165) Total Protein 6.0g/dL (6.4-8.4) 5.0g/dL (6.4-8.4) Albumin 3.6g/dL (3.4-5.0) 3.1g/dL (3.4-5.0) Urine Color Yellow (YELLOW) Urine Appearance Hazy (CLEAR,HAZY) Urine pH 5.0 (5.0-8.0) Urine Specific [place] 1.024 (1.003-1.035) Urine Protein Negativemg/dL (NEG,TRACE) Urine Glucose (UA) Negativemg/dL (NEGATIVE) Urine Ketones 15mg/dL (NEGATIVE) Urine Occult Blood Negative (NEGATIVE) Urine Nitrite Negative (NEGATIVE) Urine Bilirubin Negative (NEGATIVE) Urine Urobilinogen Normalmg/dL (NORMAL) Urine Leukocyte Esterase Negative (NEGATIVE) Urine RBC 0-2/hpf (0-2) Urine WBC 0-5/hpf (0-5) Urine Epithelial Cells Occasional/hpf (NONE-MOD) Urine Crystals None seen (NONE SEEN) Urine Bacteria None/hpf (NONE-FEW) Urine Hyaline Casts None/lpf (NONE) Urine Granular Casts None seen (NONE SEEN) Urine Waxy Casts None seen (NONE SEEN) Urine Red Blood Cell Casts None seen (NONE SEEN) Urine White Blood Cell Casts None seen (NONE SEEN) Urine Mucus None seen (None Seen) Urine Trichomonas None seen (NONE SEEN) Urine Yeast None (NONE SEEN) Urinalysis Comment None Urine Culture Reflexed Not indicated Iron Level 23ug/dL (35-150) Total Iron Binding Capacity 384ug/dL (250-450) Percent Iron Saturation 6%sat (15-50) Unsaturated Iron Binding 361.3ug/dL Result Diagram: 03/27/1765403/27/17654 General Appearance: Alert, Oriented X3, Cooperative, No Acute Distress Extremities: Distal Pulses Palpable, No Compartment Syndrom Noted, Thigh & Calf Soft/Nontender Postop Sensory Motor: Distal Motor Intact, Distal Sensation Intact, NVI Distally SURGICAL WOUND : Wound Location/Description Left lower extremity: Surgical dressing is clean, dry and intact. No direct observation of surgical wounds Activity: Activity per PT Catheters: None Assessment & Plan Impression 1. POD #1 status post left femur IM nailing 2. Postoperative anemia - symptomatic Problems: Plan Weightbearing: Toe-touch weightbearing left lower extremity with walker 6 weeks DVT prophylaxis: Lovenox 40 mg subcutaneous 3 weeks followed by aspirin 325 mg twice a day 3 weeks Physical therapy for transfers, progressive ambulation, therapeutic exercise One unit of packed red blood cells have been ordered for transfusion today Wound care: PA will change dressing on postop day 2 Discharge plan: Discharge to group home facility when medically stable We appreciate the hospitalist for medical management of this patient Follow-up plan: In 2 weeks at [facility] with SONIDO for wound check and at [address] Basurto with x-rays Pain Management: Tylenol IV, [place], Vistaril, tramadol, Dilaudid VTE Prophylaxis: Sub-Q Enoxaparin, SCDs Resuscitation Status: CPR: Attempt Resuscitation WestwayKristina Malik PA-C Mar 27, 2017 10:11
[2017-03-27] MEDS: 0.9% Sodium Chloride 250 ML IV SCH ×2 (10:45→11:53)
--- NOTE | 2017-03-27 11:18 | NUR ---
Social Work- Initial Assessment/ Multidisciplinary Rounds Data: EMR reviewed. Pt is a 58 year old female admitted 03/26/17 for left femoral neck fracture per H&P. Pt's insurance is [employer] and [employer]. Pt's PCP is Giacomo Sood MD. Pt's readmit risk score is 3. Pt's NOK is Estela Melo, daughter, . Per multidisciplinary rounds, pt's POD 1. Pt will likely require a SNF pending PT evaluation and could leave tomorrow or Saturday. SNF orders have been received. SW received call requesting SCHOOL OFFICE ASSISTANT meet with pt and daughter in the room. Pt alert and oriented x3. Pt's capacity for self-care assessed. Pt resides in [facility] where she is independent at baseline. Pt was gardening when she fell. Pt uses no DME at baseline but has a cane and walker available. Pt continues to drive. Pt has a bath bench in her home as well as grab bars. Pt has no HH or SNF history. Pt has no LTC or VA benefits. PT evaluation is pending. Pt is very active and gardens as well as does water aerobics three times per week. Pt and daughter have no concerns related to pt's capacity for self-care. Pt is agreeable to anticipated SNF discharge. SNF CHOICE LIST PROVIDED. SW provided business card and Discharge Planning Checklist to pt and daughter. SW instructed pt to call SCHOOL OFFICE ASSISTANT if needs are identified. Pt anticipated to discharge to SNF in 1-2 days pending facility acceptance. SW will continue to follow. Assessment: Pt for whom SNF is medically necessary Plan: SW will follow up with pt and daughter regarding SNF choice. Pt anticipated to discharge to SNF in 1-2 days pending facility acceptance. SW will continue to follow. KINGS Sin Addendum: 03/27/17 at 1131 by HORACIO PARHAM Amended: Links added.
--- NOTE | 2017-03-27 11:24 | NUR ---
Evaluation completed. Please go to "Notes" then click on "Assessments and Notes" (bottom left corner of screen). Then select appropriate discipline tab on top of screen.
[2017-03-27] MEDS ORDERED: ACET-171 PO (11:34)
[2017-03-27] MEDS ORDERED: PROC10TA PO (11:43)
[2017-03-27] MEDS ORDERED: TRAM-14 PO (11:43)
[2017-03-27] MEDS ORDERED: LORA0.5T PO (11:43)
[2017-03-27] MEDS ORDERED: RABE20TA5 PO (11:44)
[2017-03-27] MEDS ORDERED: PROP10DR5 OP (11:46)
[2017-03-27] MEDS ORDERED: ONDA-53 PO (11:47)
[2017-03-27] MEDS ORDERED: HYPR10GE4 BOTH_EYES (11:47)
--- NOTE | 2017-03-27 15:33 | NUR ---
PRBC 1 unit transfused, no s/s adverse effects or transfusion reaction. No need for followup labs today per daisha Dunn.
--- NOTE | 2017-03-27 16:37 | PCM.PNMED ---
Subjective Date of Service Mar 27, 2017 Subjective Patient seen and examined today. Post op day 1. Doing good. Vitals stable. Exam Vital Signs Vital Sign - Last Date Time Temp Pulse Resp B/P Pulse Ox O2 Delivery O2 Flow Rate FiO2 03/27/17 16:21 36.7 96 18 137/79 97 Nasal Cannula 2.00 Intake and Output 03/26/17 03/26/17 03/27/17 Cumulative From/Thru 15:00 23:00 07:00 03/26/17 10:50 - 03/27/17 06:13 Intake Total 500 ml 944 ml 1444 ml Output Total 200 ml 450 ml 650 ml Balance 300 ml 494 ml 794 ml Intake Oral 0 ml 250 ml 250 ml IV Total 500 ml 694 ml 1194 ml Output Urine Total 200 ml 450 ml 650 ml Exam Initial VS: Reviewed, Vital signs normal Abdomen / GI: Soft, Non-tender Skin: Warm, Dry Neurologic: Alert, Oriented, Nonfocal Psychiatric: Mood/affect normal, Behavior normal, Normal thought content Lower Extremity / Pelvis / MS: Neurologic intact, Vascular intact Left leg/hip wrapped General/Constitutional: Awake, Alert, Well developedtress Cardiovascular: Heart rate NL, Regular rhythm Heart Sounds / Murmur: Positive: Systolic murmur present.. (III/, sternal border ) Lab and Diagnostics Result Diagram: 03/27/1765403/27/17 06 X-Rays, CTs and MRIs XR left hip FINDINGS: Bones: There is a comminuted fracture of the left femoral neck with an approximate 4.6 cm overlap of fracture fragments. There is no dislocation at the hip joint. Soft tissues: The visualized bowel gas pattern is normal. No suspicious soft tissue calcifications. IMPRESSION: Comminuted left femoral neck fracture as above. Assessment & Plan > Left hip fracture , POD #1 status post left femur IM nailing - Xray as noted above - pain control with dilaudid - antinausea meds - will check Vit D levels, Ca - borderline low - PT/OT - pain control with norco and tramadol > Anemia - Hgb 8.8 at admission , 7.1 today, tranfused blood - microcytic, likely secondary to malabsorption - Iron and saturation are low, patient will need iron replacement. 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, patient to meet up with spine surgeon in april for possible surgery > Leukocytosis - likely reactive, no source of infection, patient afebrile - will monitor - if patient spikes fever, blood cultures to be sent X 2 > h/o pancreatic cancer s/p whipple's - in remission - will continue creon in patient > HTN - controlled, continue home med > Hypothyroidism - on levothyroxine at home , will continue DVT prophylaxis, lovenox FEN: Diabetic diet Dispo : SNF , once patient stable enough VTE Prophylaxis: Sub-Q Enoxaparin, SCDs VTE Mechanical Devices: Intermittant Pneumatic CD Resuscitation Status: CPR: Attempt Resuscitation Time spent 35 mins Rico Carroll MD Mar 27, 2017 16:37
[2017-03-27] MEDS ORDERED: LORazepam 0.5 mg Tablet PO ONE (23:45)
[2017-03-28] VITALS (7 sets, daily range): BP systolic 115–157; BP diastolic 63–76; PULSE 64–97; RESP 16–20; O2SAT 92–98
[2017-03-28] MEDS: HYDROcodone-APAP 5-325 mg Tablet PO PRN ×6 (00:13→21:47)
[2017-03-28] MEDS: HYDROmorphone 1 mg/mL Inj IVPUSH PRN (00:30)
[2017-03-28] MEDS: Sodium Chloride LOK Flush 10 mL Syringe IV SCH ×3 (00:30→16:31)
[2017-03-28] MEDS: 0.9% Sodium Chloride 1,000 ML IV SCH (00:59)
--- NOTE | 2017-03-28 04:11 | NUR ---
Pain/ Anxiety Around midnight, pt. reported feeling shaky and anxious. VSS. Pt. reported to this RN pt. takes Lorazepam PO on a regular basis at bedtime. This med was on her reconcile meds, however not on the eMAR. William SANCHEZ paged. William SANCHEZ ordered a one time dose of Lorazepam which was given. Around this time, pt. also felt an increase in pain of 10/10. IV Dilaudid 0.25mg given. Some education was given on pain medication. Pt. agreed to take 2 Cameron tabs instead of 1 to see if that can create longer lasting pain control. Will continue to monitor.
[2017-03-28] MEDS: hydrOXYzine Pamoate 25 mg Capsule PO PRN ×3 (04:33→21:47)
[2017-03-28] MEDS: Pantoprazole 20 mg ER24 Tablet PO SCH (06:28)
[2017-03-28 06:43] LABS: Mean Corpuscular Hemoglobin 25.4 pg (27.0-35.0); Mean Corpuscular Volume 81.2 fL (81-100); NEUTROPHILS % (AUTO) 66.8 % (40-74); Platelet Count 134 bil/L (150-400)
[2017-03-28 06:44] LABS: BASOPHILS % (AUTO) 0.2 % (0-3); EOSINOPHILS % (AUTO) 0.6 % (0-5); MONOCYTES % (AUTO) 13.9 % (4-12)
--- NOTE | 2017-03-28 06:54 | NUR ---
So d/c So d/c around 0630. 10 cc taken out of balloon.
[2017-03-28] MEDS: Pancrelipase 5,000 Unit Capsule PO SCH ×3 (08:26→18:20)
[2017-03-28] MEDS: Senna-Docusate 8.6-50 mg Tablet PO SCH ×2 (08:26→20:54)
[2017-03-28] MEDS ORDERED: RABEPRAZOLE 20 MG PO SCH (08:35)
[2017-03-28] MEDS ORDERED: PROPYLENE GLYCOL SCH (08:35)
[2017-03-28] MEDS ORDERED: POLYETHYLENE GLYCOL 400 SCH (08:35)
--- NOTE | 2017-03-28 08:35 | PCM.PNMED ---
Subjective Date of Service Mar 28, 2017 Subjective Patient had a panic attack last night. Takes lorezapam at home. Vitals stable. Exam Vital Signs Vital Sign - Last Date Time Temp Pulse Resp B/P Pulse Ox O2 Delivery O2 Flow Rate FiO2 03/28/17 08:07 37.4 92 18 130/69 93 Nasal Cannula 3.00 Intake and Output 03/27/17 03/27/17 03/28/17 Cumulative From/Thru 15:00 23:00 07:00 03/26/17 10:50 - 03/27/17 18:00 Intake Total 533 ml 1670 ml 3647 ml Output Total 1600 ml 2250 ml Balance 533 ml 70 ml 1397 ml Intake Oral 1220 ml 1470 ml IV Total 533 ml 150 ml 1877 ml Packed Cells 300 ml 300 ml Output Urine Total 1600 ml 2250 ml Exam Initial VS: Reviewed, Vital signs normal Abdomen / GI: Soft, Non-tender Skin: Warm, Dry Neurologic: Alert, Oriented, Nonfocal Psychiatric: Mood/affect normal, Behavior normal, Normal thought content Lower Extremity / Pelvis / MS: Neurologic intact, Vascular intact Left leg/hip wrapped General/Constitutional: Awake, Alert, Well developedtress Cardiovascular: Heart rate NL, Regular rhythm Heart Sounds / Murmur: Positive: Systolic murmur present.. (III/, sternal border ) Lab and Diagnostics Result Diagram: 03/28/17 0550 03/28/17 0550 X-Rays, CTs and MRIs XR left hip FINDINGS: Bones: There is a comminuted fracture of the left femoral neck with an approximate 4.6 cm overlap of fracture fragments. There is no dislocation at the hip joint. Soft tissues: The visualized bowel gas pattern is normal. No suspicious soft tissue calcifications. IMPRESSION: Comminuted left femoral neck fracture as above. Assessment & Plan > Left hip fracture , POD #2 status post left femur IM nailing - Xray as noted above - pain control with dilaudid - antinausea meds - will check Vit D levels, Ca - borderline low - PT/OT - pain control with norco and tramadol > Anemia (Acute) - Hgb 8.8 at admission , 6.6 today, got 1 unit yesteday, will transfuse 2 units today - low iron chronic cause - intraoperative loss likely acute cause - will monitor hgb - Iron and saturation are low, patient will need iron replacement. 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, patient to meet up with spine surgeon in april for possible surgery > Leukocytosis - likely reactive, no source of infection, patient afebrile - will monitor - if patient spikes fever, blood cultures to be sent X 2 > h/o pancreatic cancer s/p whipple's - in remission - will continue creon in patient > HTN - controlled, continue home med > Hypothyroidism - on levothyroxine at home , will continue DVT prophylaxis, lovenox FEN: Diabetic diet Dispo : SNF , once patient stable enough VTE Prophylaxis: Sub-Q Enoxaparin, SCDs VTE Mechanical Devices: Intermittant Pneumatic CD Resuscitation Status: CPR: Attempt Resuscitation Time spent 35 mins Rico Carroll MD Mar 28, 2017 08:35
--- NOTE | 2017-03-28 08:56 | PCM.PNORTH ---
Subjective Date of Service: Mar 28, 2017 Visit Information: Reason for Visit Left Femoral Neck Fracture Surgery/Surgery Date Post-Op Day # Date of Admission: Mar 26, 2017 at 13:38 Hospital Day # Subjective Found patient awake and alert and sitting up in bed with daughter at bedside. No complaints of discomfort at this time. Discussed discharge when patient is medically stable to do so. Patient will receive 2 more units of blood today and I have talked with the hospitalist service about this. Hospitalist will also talk with the patient about putting diazepam on her med list since she had been receiving this chronically prior to admit. Bandages were changed this morning and patient's wound is in good condition. Patient is recovering from pancreatic cancer and has had a great deal of healthcare and her recent past. Postop General: No Complaints, No Shortness of Breath, No Chest Pain, Good Appetite Pain Management: PO, IV Push Objective Exam Objective Alert and oriented 3 and pleasant. Interoperative dressing is clean dry and intact. Calf and thigh soft and nontender. Toe wiggle and sensation are intact in left lower extremity distally. Right SCD in place So absent No gait as of this time with formal physical therapy secondary to blood transfusion yesterday on 03/27/2017. Vital Signs and I/O Vital Sign - Last Date Time Temp Pulse Resp B/P Pulse Ox O2 Delivery O2 Flow Rate FiO2 03/28/17 08:07 37.4 92 18 130/69 93 Nasal Cannula 3.00 Intake and Output 03/27/17 03/27/17 03/28/17 Cumulative From/Thru 15:00 23:00 07:00 03/26/17 10:50 - 03/27/17 18:00 Intake Total 533 ml 1670 ml 3647 ml Output Total 1600 ml 2250 ml Balance 533 ml 70 ml 1397 ml Intake Oral 1220 ml 1470 ml IV Total 533 ml 150 ml 1877 ml Packed Cells 300 ml 300 ml Output Urine Total 1600 ml 2250 ml Lab & Micro Results Laboratory Tests Test 03/28/17 05:50 White Blood Count 6.6th/mm3 (3.8-10.1) Red Blood Count 2.60mil/mm3 (3.90-5.20) Hemoglobin 6.6g/dL (12.0-15.6) Hematocrit 21.1% (35.0-46.0) Mean Corpuscular Volume 81.2fL (81-100) Mean Corpuscular Hemoglobin 25.4pg (27.0-35.0) Mean Corpuscular Hemoglobin Concent 31.3% (32.0-37.0) Red Cell Distribution Width 14.9% (12.3-15.4) Platelet Count 134bil/L (150-400) Neutrophils (%) (Auto) 66.8% (40-74) Lymphocytes (%) (Auto) 18.3% (14-46) Monocytes (%) (Auto) 13.9% (4-12) Eosinophils (%) (Auto) 0.6% (0-5) Basophils (%) (Auto) 0.2% (0-3) Sodium Level 141mEq/L (134-144) Potassium Level 4.1mEq/L (3.5-5.2) Chloride Level 105mEq/L (97-108) Carbon Dioxide Level 25mmol/L (18-29) Blood Urea Nitrogen 17mg/dL (8-27) Creatinine 0.53mg/dL (0.57-1.00) Estimat Glomerular Filtration Rate 157mL/min (>59) Glucose Level 159mg/dL (60-99) Calcium Level 7.8mg/dL (8.5-10.1) Total Bilirubin 0.4mg/dL (0.0-1.2) Aspartate Amino Transf (AST/SGOT) 34U/L (0-50) Alanine Aminotransferase (ALT/SGPT) 17U/L (0-32) Alkaline Phosphatase 82U/L (25-165) Total Protein 4.6g/dL (6.4-8.4) Albumin 2.6g/dL (3.4-5.0) Result Diagram: 03/28/17 0550 03/28/17 0550 General Appearance: Alert, Oriented X3, Cooperative, No Acute Distress Extremities: No Compartment Syndrom Noted, Thigh & Calf Soft/Nontender Postop Sensory Motor: Distal Motor Intact, Movement in Toes, Distal Sensation Intact Activity: Activity per PT (touch toe weightbearing only at the left lower extremity 6 weeks postop with use of front wheeled walker.) Catheters: None Assessment & Plan Impression Patient is a pleasant 86-year-old female who has undergone a recent left hip cephalometric medullary nailing on 03/26/[address] Sean Basurto. Patient has a history of pancreatic cancer for which she is recovering and uses chronic diazepam. She has suffered from low H&H postoperatively and this has delayed her physical therapy and mobility. Problems: Plan Postop day #2 from left hip cephalomedulary nailing on 03/26/[address] Sean Basurto. Hemoglobin 6.6, hematocrit 21.1. I have spoken with hospitalist service and they have already ordered 2 units of PRBCs. I have also spoken with hospitalist service regarding ordering patient's chronic diazepam dose for her and they are agreeable to this. Continue touch toe weightbearing only 6 weeks postoperatively with a front wheel walker. Continue by mouth pain medication as needed and avoid IV pain medication at this point. Continue Lovenox 40 mg subcutaneous daily 3 weeks postop with transition to ASA 325 mg EC by mouth twice a day times an additional 3 weeks postop totaling 6 weeks postoperative DVT prophylaxis. Interoperative dressing is changed to postop dressing today and wound is in good condition Nursing please fit bilateral thigh-high TYRONE hose as ordered today. Nursing please move patient by mouth pain medication and avoid IV pain medication if possible. Follow-up at [facility] orthopedic clinic in 2 weeks with mid-level provider for wound check and suture removal. Follow-up at [facility] orthopedic clinic in [address] Sean Basurto with left two-view femur x-rays on arrival. Anticipate discharge to detention facility by hospitalist service when patient is medically stable to do so. VTE Prophylaxis: Sub-Q Enoxaparin (Lovenox 40 mg subcutaneous daily 3 weeks postop with transition to ASA 325 mg EC by mouth twice a day for an additional 3 weeks totaling 6 weeks postoperative DVT prophylaxis), SCDs (right lower extremity SCD), TYRONE Hose (bilateral thigh-high TYRONE hose) Resuscitation Status: CPR: Attempt Resuscitation Dm Muse PA-C Mar 28, 2017 08:56
[2017-03-28] MEDS: 0.9% Sodium Chloride 250 ML IV SCH ×2 (09:00→09:10)
--- NOTE | 2017-03-28 11:20 | NUR ---
SNF choice list provided to pt. Riya Perez ATM MANAGER
--- NOTE | 2017-03-28 11:20 | NUR ---
Social Work- Multidisciplinary Rounds Pt is not medically stable for discharge, anticipate tomorrow. Pt will require SNF at discharge. Choice list provided to pt. SW awaiting pt's SNF choice to make referral. SW will continue to follow. KINGS Sin
--- NOTE | 2017-03-28 11:22 | NUR ---
H&H too low. Will see pt. when more stable. Kevin Conte, OTR/L
--- NOTE | 2017-03-28 14:27 | NUR ---
Social Work- Continued D/C Planning/ multidisciplinary rounds Data: EMR reviewed. Pt is on day 2 of hospitalization. Per rounds pt's h&h is low and she will be transfused. Pt is likely to discharge tomorrow. SW met with pt at bedside regarding discharge plan and SNF choice. Pt [facility]) [facility] and 2) [facility]. Pt's paperwork is in chart. [facility] has been completed and faxed. SW awaiting acceptance at facility and will update pt's daughter and pt when information is known. SW will continue to follow Assessment: Pt for whom SNF is medically necessary Plan: Referral made to 1) [facility] and 2) [facility]. Acceptance pending. Pt's paperwork is in chart. [facility] has been completed and faxed. SW awaiting acceptance at facility and will update pt's daughter and pt when information is known. TRINY will continue to follow KINGS Sin Addendum: 03/28/17 at 1500 by HORACIO PARHAM [facility] at discharge. Pt and daughter updated and agreeable to plan. TRINY will continue to follow. Riya KU
--- NOTE | 2017-03-28 14:33 | NUR ---
Faxed referral to [facility] and [facility] per DIETETIC TECH. updated DIETETIC TECH.
--- NOTE | 2017-03-28 18:03 | NUR ---
Blood: pt received 2 units prbc today with no issue. Pain controlled with oral pain medications. PT deferred until lab values wnl. Pt voided without issue after removal of santana early this am. Bandage changed by Terrance HEAD.
[2017-03-28] MEDS: Artificial Tears 15 mL Ophthalmic Solution BOTH_EYES SCH (20:56)
[2017-03-28] MEDS ORDERED: HYPROMELLOSE BOTH_EYES SCH (21:00)
[2017-03-28] MEDS: LORazepam 0.5 mg Tablet PO PRN (21:47)
[2017-03-29] MEDS: Sodium Chloride LOK Flush 10 mL Syringe IV SCH ×3 (01:52→16:30)
[2017-03-29] MEDS: hydrOXYzine Pamoate 25 mg Capsule PO PRN ×4 (01:52→23:00)
[2017-03-29] MEDS: HYDROcodone-APAP 5-325 mg Tablet PO PRN ×5 (01:53→20:21)
[2017-03-29 05:10] VITALS: BP 158/85; PULSE 73; RESP 20; O2SAT 99
--- NOTE | 2017-03-29 05:39 | NUR ---
Pain/ Void Pt. has been able to void well using the bedpan tonight. Pt. has not rated her pain > 6/10. 2 [place] and Vistaril seem to be effective. Will continue to monitor.
[2017-03-29] MEDS: Pantoprazole 20 mg ER24 Tablet PO SCH (05:59)
[2017-03-29 06:24] LABS: BASOPHILS % (AUTO) 0.3 % (0-3); EOSINOPHILS % (AUTO) 1.6 % (0-5); MONOCYTES % (AUTO) 10.8 % (4-12); Mean Corpuscular Hemoglobin 27.5 pg (27.0-35.0); Mean Corpuscular Volume 82.7 fL (81-100); NEUTROPHILS % (AUTO) 66.6 % (40-74); Platelet Count 134 bil/L (150-400)
--- NOTE | 2017-03-29 08:18 | PCM.PNMED ---
Subjective Date of Service Mar 29, 2017 Subjective Patient seen and examined. Complains of neck pain due to lying down in bed. Vitals stable. Exam Vital Signs Vital Sign - Last Date Time Temp Pulse Resp B/P Pulse Ox O2 Delivery O2 Flow Rate FiO2 03/29/17 05:10 36.8 73 20 158/85 99 Nasal Cannula 2.00 Intake and Output 03/28/17 03/28/17 03/29/17 Cumulative From/Thru 15:00 23:00 07:00 03/26/17 10:50 - 03/29/17 06:35 Intake Total 1250 ml 1148 ml 1200 ml 7245 ml Output Total 1750 ml 1350 ml 1500 ml 6850 ml Balance -500 ml -202 ml -300 ml 395 ml Intake Oral 900 ml 798 ml 1200 ml 4368 ml IV Total 50 ml 50 ml 1977 ml Packed Cells 300 ml 300 ml 900 ml Output Urine Total 1750 ml 1350 ml 1500 ml 6850 ml # Voids 5 5 # Bowel Movements 0 1 0 1 Exam Initial VS: Reviewed, Vital signs normal Abdomen / GI: Soft, Non-tender Skin: Warm, Dry Neurologic: Alert, Oriented, Nonfocal Psychiatric: Mood/affect normal, Behavior normal, Normal thought content Lower Extremity / Pelvis / MS: Neurologic intact, Vascular intact Left leg/hip wrapped General/Constitutional: Awake, Alert, Well developedtress Cardiovascular: Heart rate NL, Regular rhythm Heart Sounds / Murmur: Positive: Systolic murmur present.. (III/, sternal border ) Lab and Diagnostics Result Diagram: 03/29/17 0611 03/28/17 0550 X-Rays, CTs and MRIs XR left hip FINDINGS: Bones: There is a comminuted fracture of the left femoral neck with an approximate 4.6 cm overlap of fracture fragments. There is no dislocation at the hip joint. Soft tissues: The visualized bowel gas pattern is normal. No suspicious soft tissue calcifications. IMPRESSION: Comminuted left femoral neck fracture as above. Assessment & Plan > Left hip fracture , POD #3 status post left femur IM nailing - Xray as noted above - pain control with dilaudid - antinausea meds -Vit D levels, Ca - borderline low - PT/OT - pain control with norco and tramadol > Anemia (Acute) - Hgb 8.8 at admission , 9.3 today - low iron chronic cause - intraoperative loss likely acute cause - will monitor hgb - Iron and saturation are low, patient will need iron replacement. 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, patient to meet up with spine surgeon in april for possible surgery > Leukocytosis, resolved - likely reactive, no source of infection, patient afebrile - will monitor - if patient spikes fever, blood cultures to be sent X 2 > h/o pancreatic cancer s/p whipple's - in remission - will continue pancreatic enzymes in patient > HTN - controlled, continue home med > Hypothyroidism - on levothyroxine at home , will continue DVT prophylaxis, lovenox FEN: Diabetic diet Dispo : SNF , once patient stable enough VTE Prophylaxis: Sub-Q Enoxaparin (Lovenox 40 mg subcutaneous daily 3 weeks postop with transition to ASA 325 mg EC by mouth twice a day for an additional 3 weeks totaling 6 weeks postoperative DVT prophylaxis), SCDs (right lower extremity SCD), TYRONE Hose (bilateral thigh-high TYRONE hose) VTE Mechanical Devices: Intermittant Pneumatic CD Resuscitation Status: CPR: Attempt Resuscitation Time spent 35 mins Rico Carroll MD Mar 29, 2017 08:18
--- NOTE | 2017-03-29 08:46 | PCM.PNORTH ---
Subjective Date of Service: Mar 29, 2017 Visit Information: Reason for Visit Left Femoral Neck Fracture Surgery/Surgery Date Post-Op Day # Date of Admission: Mar 26, 2017 at 13:38 Hospital Day # Subjective Found patient awake alert this morning well positioned supine in bed. Patient' s daughter is in the room and in attendance at bedside. Discussed likely discharge to long term facility as soon as she is medically stable and patient is aware of this and in agreement. Patient indicates her hospitalist has discussed keeping her 1 more day to monitor some of her labs. Advised patient today of orthopedic sign off and that we will remain available as needed. Postop General: No Complaints, No Shortness of Breath, No Chest Pain, Good Appetite Pain Management: PO Objective Exam Objective Alert and oriented 3 and pleasant. Hemoglobin 9.5, hematocrit 28.6 Postoperative dressings intact and lightly soiled Calf and thigh are soft and nontender Toe wiggle and sensation are intact at left lower extremity distally TYRONE hose are in place. Adjusted left posterior tourniquet effect and improved comfort. SCDs are in place. Discontinued left SCD and advise nursing. I believe this may be pushing serous fluid out of the patient's wounds and I would like these to seal up as soon as possible. So is absent No appreciable physical therapy as of yet secondary to 2 days of blood transfusions. Vital Signs and I/O Vital Sign - Last Date Time Temp Pulse Resp B/P Pulse Ox O2 Delivery O2 Flow Rate FiO2 03/29/17 05:10 36.8 73 20 158/85 99 Nasal Cannula 2.00 Intake and Output 03/28/17 03/28/17 03/29/17 Cumulative From/Thru 15:00 23:00 07:00 03/26/17 10:50 - 03/29/17 06:35 Intake Total 1250 ml 1148 ml 1200 ml 7245 ml Output Total 1750 ml 1350 ml 1500 ml 6850 ml Balance -500 ml -202 ml -300 ml 395 ml Intake Oral 900 ml 798 ml 1200 ml 4368 ml IV Total 50 ml 50 ml 1977 ml Packed Cells 300 ml 300 ml 900 ml Output Urine Total 1750 ml 1350 ml 1500 ml 6850 ml # Voids 5 5 # Bowel Movements 0 1 0 1 Lab & Micro Results Laboratory Tests Test 03/28/17 16:25 03/29/17 06:11 Hemoglobin 9.8g/dL (12.0-15.6) 9.5g/dL (12.0-15.6) Hematocrit 29.6% (35.0-46.0) 28.6% (35.0-46.0) White Blood Count 6.8th/mm3 (3.8-10.1) Red Blood Count 3.46mil/mm3 (3.90-5.20) Mean Corpuscular Volume 82.7fL (81-100) Mean Corpuscular Hemoglobin 27.5pg (27.0-35.0) Mean Corpuscular Hemoglobin Concent 33.2% (32.0-37.0) Red Cell Distribution Width 15.5% (12.3-15.4) Platelet Count 134bil/L (150-400) Neutrophils (%) (Auto) 66.6% (40-74) Lymphocytes (%) (Auto) 20.4% (14-46) Monocytes (%) (Auto) 10.8% (4-12) Eosinophils (%) (Auto) 1.6% (0-5) Basophils (%) (Auto) 0.3% (0-3) Result Diagram: 03/29/17 0611 03/28/17 0550 General Appearance: Alert, Oriented X3, Cooperative, No Acute Distress Extremities: No Compartment Syndrom Noted, Thigh & Calf Soft/Nontender Postop Sensory Motor: Distal Motor Intact, Movement in Toes, Distal Sensation Intact Activity: Activity per PT (touch toe weightbearing only at the left lower extremity 6 weeks postop with use of front wheeled walker.) Catheters: None Assessment & Plan Impression Patient is a 86-year-old female who is undergone a left hip cephalomedulary nailing on 03/26/2017. Patient has gotten off to a slow start in her recovery secondary to needing blood transfusions on 2 consecutive days postop and thereby remaining unavailable for physical therapy. Patient is also recovering from pancreatic cancer and does have a cervical spine issue which have complicated her mobility and medical picture. Problems: Plan Postop day #3 from left hip cephalomedulary nailing on 03/26/[address] Sean Basurto. Hemoglobin 9.5, hematocrit 28.6. Continue touch toe weightbearing only 6 weeks postoperatively with a front wheel walker. Continue formal physical therapy for mobility, 8 and safety. Continue by mouth pain medication as needed and avoid IV pain medication at this point. Continue Lovenox 40 mg subcutaneous daily 3 weeks postop with transition to ASA 325 mg EC by mouth twice a day times an additional 3 weeks postop totaling 6 weeks postoperative DVT prophylaxis. Nursing please remove left SCD in an effort to eliminate pushing serous fluid out of the patient's wounds thereby allowing these to seal. Nursing please change postoperative dressings as needed when soiled and/or loosens. Nursing please provide ice at the patient's wounds if patient is agreeable. Follow-up at [facility] orthopedic clinic in 2 weeks with mid-level provider for wound check and suture removal. Follow-up at [facility] orthopedic clinic in [address] Sean Basurto with left two-view femur x-rays on arrival. Orthopedics thanks hospitalist service for their help in the medical management of this patient. Orthopedics will sign off at this time but as always we will remain available for consultation or treatment as needed. Anticipate discharge to long term facility by hospitalist service when patient is medically stable to do so. VTE Prophylaxis: Sub-Q Enoxaparin (Lovenox 40 mg subcutaneous daily 3 weeks postop with transition to ASA 325 mg EC by mouth twice a day for an additional 3 weeks totaling 6 weeks postoperative DVT prophylaxis), SCDs (right lower extremity SCD), TYRONE Hose (bilateral thigh-high TYRONE hose) Resuscitation Status: CPR: Attempt Resuscitation Dm Muse PA-C Mar 29, 2017 08:46
[2017-03-29] MEDS: 0.9% Sodium Chloride 250 ML IV SCH ×2 (08:50→09:10)
[2017-03-29] MEDS: Senna-Docusate 8.6-50 mg Tablet PO SCH ×2 (10:17→20:21)
[2017-03-29] MEDS: Pancrelipase 5,000 Unit Capsule PO SCH ×3 (10:18→18:12)
--- NOTE | 2017-03-29 10:23 | NUR ---
Evaluation completed. Please go to "Notes" then click on "Assessments and Notes" (bottom left corner of screen). Then select appropriate discipline tab on top of screen.
[2017-03-29 11:23] VITALS: PULSE 86
[2017-03-29 13:07] VITALS: BP 116/73; PULSE 65; RESP 18; O2SAT 96
--- NOTE | 2017-03-29 19:48 | NUR ---
Ambulation / Pain / Dressing Ambulating SBA FWW well to commode. Needs help moving left leg. Pain continues 5-03/18. 2 tabs [place] work well with Vistaril as well. Dressings slightly saturated minimal drainage Sero-sanguineous. No change at this time per MD. Md aware. Care continues
[2017-03-29] MEDS: Artificial Tears 15 mL Ophthalmic Solution BOTH_EYES SCH (20:21)
[2017-03-29 20:41] VITALS: BP 142/76; PULSE 85; RESP 20; O2SAT 97
[2017-03-29] MEDS: LORazepam 0.5 mg Tablet PO PRN (21:20)
[2017-03-30] MEDS: Sodium Chloride LOK Flush 10 mL Syringe IV SCH ×3 (00:39→15:32)
--- NOTE | 2017-03-30 01:06 | NUR ---
Swollen/bruised labia Patient's left labia is significantly swollen compared to the right, and bruised. Minimal discomfort per patient to palpation. Previously receiving baby powder to area for redness. Patient unaware of swelling or onset. Night hospitalist notified, no new orders at this time.
[2017-03-30] MEDS: HYDROcodone-APAP 5-325 mg Tablet PO PRN ×3 (02:39→12:08)
[2017-03-30 05:20] VITALS: BP 129/78; PULSE 78; RESP 16; O2SAT 96
[2017-03-30 05:29] LABS: BASOPHILS % (AUTO) 0.3 % (0-3); EOSINOPHILS % (AUTO) 2.4 % (0-5); MONOCYTES % (AUTO) 10.3 % (4-12); Mean Corpuscular Hemoglobin 27.4 pg (27.0-35.0); NEUTROPHILS % (AUTO) 73.2 % (40-74); Platelet Count 138 bil/L (150-400)
[2017-03-30] MEDS: Pantoprazole 20 mg ER24 Tablet PO SCH (06:02)
[2017-03-30 07:43] VITALS: BP 154/85; PULSE 84; RESP 16; O2SAT 96
[2017-03-30] MEDS: hydrOXYzine Pamoate 25 mg Capsule PO PRN ×2 (07:54→15:31)
[2017-03-30] MEDS: Senna-Docusate 8.6-50 mg Tablet PO SCH (07:54)
[2017-03-30] MEDS: 0.9% Sodium Chloride 250 ML IV SCH ×2 (07:55)
[2017-03-30] MEDS: Pancrelipase 5,000 Unit Capsule PO SCH ×2 (07:56→12:08)
[2017-03-30 13:46] VITALS: BP 134/75; PULSE 86; RESP 17; O2SAT 99
--- NOTE | 2017-03-30 14:24 | PCM.DIMED ---
Discharge Instructions Date of Service Mar 30, 2017 Dates of Hospitalization Mar 26, 2017 at 13:38 Discharge Diagnosis Discharge Diagnosis Hip fracture s/p surgery Medication Instructions Additional med instructions Lovenox 40 mg subcutaneous daily 3 weeks postop with transition to ASA 325 mg EC by mouth twice a day for an additional 3 weeks totaling 6 weeks postoperative DVT prophylaxis Diet Discharge Diet: No restrictions Activity Discharge Activity: No restrictions Call your provider Call your provider for: Fever or Chills, Bleeding, Chest pain, Excessive diarrhea Patient Instructions Follow-up plan Follow-up at [facility] orthopedic clinic in 2 weeks with mid-level provider for wound check and suture removal. Follow-up at [facility] orthopedic clinic in [address] Sean Basurto with left two-view femur x-rays on arrival. Follow-up with PCP in: 2 weeks Provider: eSan Basurto DO Follow-up in: 6 weeks Additional Information Continue touch toe weightbearing only 6 weeks postoperatively with a front wheel walker. Continue formal physical therapy for mobility, 8 and safety. Rico Carroll MD Mar 30, 2017 14:24
[2017-03-30] MEDS ORDERED: HYDR-4003 PO (14:26)
[2017-03-30] MEDS ORDERED: LIPA1CAP3 PO (14:26)
[2017-03-30] MEDS ORDERED: CALCIT PO (14:29)
[2017-03-30] MEDS ORDERED: FERR140T PO (14:30)
--- NOTE | 2017-03-30 14:32 | PCM.DC.MED ---
Discharge Summary Date of Service Mar 30, 2017 Dates of Hospitalization Date of Hospital Admission Mar 26, 2017 at 13:38 Date of Discharge: Mar 30, 2017 Providers: Admitting Physician: Rico Carroll MD Primary Care Physician: Giacomo Sood MD Attending Physician: Rico Carroll MD Diagnosis at Time of Discharge Diagnosis at Time of Discharge Hip fracture s/p surgery Procedures XRay, CTs & MRIs XR left hip FINDINGS: Bones: There is a comminuted fracture of the left femoral neck with an approximate 4.6 cm overlap of fracture fragments. There is no dislocation at the hip joint. Soft tissues: The visualized bowel gas pattern is normal. No suspicious soft tissue calcifications. IMPRESSION: Comminuted left femoral neck fracture as above. Brief History Patient is an 86 year old female with a hx of pancreatic cancer (s/p whipples 5 years ago, in remission), thyroid disease, and HTN who presents to the ED via EMS s/p tripping and falling just prior to arrival. She said she was watering her garden when she tripped and fell on her left hip resulting in the trauma at about 9:30 am. She denies any chest pain. Does complain of abdominal cramping, associated with her post whipple's complication. Takes Creon at home. She denies any cardiac history. Fully functional at baseline. Does add that she has chronic history of neck pain 2/2 osteoarthritis, and was scheduled to meet spine surgeon for possible surgery. No other complains at this point. Hospital Course > Left hip fracture , POD #4 status post left femur IM nailing - Xray as noted above - pain control oral painkillers - antinausea meds -Vit D levels, Ca - borderline low , replaced - PT/OT - pain control with norco and tramadol > Anemia (Acute) - Hgb 8.8 at admission , 9.3 today - low iron chronic cause - intraoperative loss likely acute cause - will monitor hgb - Iron and saturation are low, patient will need iron replacement. 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, patient to meet up with spine surgeon in april for possible surgery > Leukocytosis, resolved - likely reactive, no source of infection, patient afebrile - will monitor - if patient spikes fever, blood cultures to be sent X 2 > h/o pancreatic cancer s/p whipple's - in remission - will continue pancreatic enzymes in patient > HTN - controlled, continue home med > Hypothyroidism - on levothyroxine at home , will continue DVT prophylaxis, lovenox FEN: Diabetic diet Exam Vital Signs (Last) Date Time Temp Pulse Resp B/P Pulse Ox O2 Delivery O2 Flow Rate FiO2 03/30/17 13:46 36.9 86 17 134/75 99 Room Air 03/29/17 05:10 2.00 Test 03/26/17 13:09 03/26/17 20:58 03/27/17 06:55 03/28/17 05:50 Magnesium Level 2.2mg/dL (1.6-2.6) Urine Color Yellow (YELLOW) Urine Appearance Hazy (CLEAR,HAZY) Urine pH 5.0 (5.0-8.0) Urine Specific [place] 1.024 (1.003-1.035) Urine Protein Negativemg/dL (NEG,TRACE) Urine Glucose (UA) Negativemg/dL (NEGATIVE) Urine Ketones 15mg/dL (NEGATIVE) Urine Occult Blood Negative (NEGATIVE) Urine Nitrite Negative (NEGATIVE) Urine Bilirubin Negative (NEGATIVE) Urine Urobilinogen Normalmg/dL (NORMAL) Urine Leukocyte Esterase Negative (NEGATIVE) Urine RBC 0-2/hpf (0-2) Urine WBC 0-5/hpf (0-5) Urine Epithelial Cells Occasional/hpf (NONE-MOD) Urine Crystals None seen (NONE SEEN) Urine Bacteria None/hpf (NONE-FEW) Urine Hyaline Casts None/lpf (NONE) Urine Granular Casts None seen (NONE SEEN) Urine Waxy Casts None seen (NONE SEEN) Urine Red Blood Cell Casts None seen (NONE SEEN) Urine White Blood Cell Casts None seen (NONE SEEN) Urine Mucus None seen (None Seen) Urine Trichomonas None seen (NONE SEEN) Urine Yeast None (NONE SEEN) Urinalysis Comment None Urine Culture Reflexed Not indicated Iron Level 23ug/dL (35-150) Total Iron Binding Capacity 384ug/dL (250-450) Percent Iron Saturation 6%sat (15-50) Unsaturated Iron Binding 361.3ug/dL Vitamin D 25-Hydroxy 36.4ng/mL (30.0-100.0) Sodium Level 141mEq/L (134-144) Potassium Level 4.1mEq/L (3.5-5.2) Chloride Level 105mEq/L (97-108) Carbon Dioxide Level 25mmol/L (18-29) Blood Urea Nitrogen 17mg/dL (8-27) Creatinine 0.53mg/dL (0.57-1.00) Estimat Glomerular Filtration Rate 157mL/min (>59) Glucose Level 159mg/dL (60-99) Calcium Level 7.8mg/dL (8.5-10.1) Total Bilirubin 0.4mg/dL (0.0-1.2) Aspartate Amino Transf (AST/SGOT) 34U/L (0-50) Alanine Aminotransferase (ALT/SGPT) 17U/L (0-32) Alkaline Phosphatase 82U/L (25-165) Total Protein 4.6g/dL (6.4-8.4) Albumin 2.6g/dL (3.4-5.0) Test 03/30/17 05:06 White Blood Count 6.6th/mm3 (3.8-10.1) Red Blood Count 3.36mil/mm3 (3.90-5.20) Hemoglobin 9.2g/dL (12.0-15.6) Hematocrit 27.9% (35.0-46.0) Mean Corpuscular Volume 83.0fL (81-100) Mean Corpuscular Hemoglobin 27.4pg (27.0-35.0) Mean Corpuscular Hemoglobin Concent 33.0% (32.0-37.0) Red Cell Distribution Width 15.5% (12.3-15.4) Platelet Count 138bil/L (150-400) Neutrophils (%) (Auto) 73.2% (40-74) Lymphocytes (%) (Auto) 13.5% (14-46) Monocytes (%) (Auto) 10.3% (4-12) Eosinophils (%) (Auto) 2.4% (0-5) Basophils (%) (Auto) 0.3% (0-3) Discharge Medications Discharge Medications Calcium Citrate (Calcium Citrate) 250 Mg Tablet 250 MG PO DAILY Prescribed by: RICO CARROLL MD Ferrous Sulfate (Ferrous Sulfate) 140 Mg Tablet.er 140 MG PO DAILY Prescribed by: RICO CARROLL MD Glucosamine Sulfate 2Kcl (Glucosamine) 1,000 Mg Tablet 1,500 MG PO 3X Week ( Reported) Hypromellose (Systane Gel) 10 Gm Gel..gram. 1 APPLIC BOTH_EYES HS (Reported) Levothyroxine (Levothyroxine) 50 Mcg Tablet 50 MCG PO DAILY (Reported) Lipase/Protease/Amylase (Creon DR) 12,000 Unit Capsule 24,000 CAPSULE PO TIDWM Prescribed by: RICO CARROLL MD Losartan Potassium (Losartan Potassium) 50 Mg Tablet 50 MG PO DAILY (Reported) Pilocarpine (Pilocarpine) 5 Mg Tablet 5 MG PO BID (Reported) Potassium Chloride ER (Klor-Con 10) 10 Meq Tablet 10 MEQ PO DAILY (Reported) Propylene Glycol/Peg 400 (Systane Gel Eye Drops) 10 Ml Drops.gel 1 ML OP DAILY ( Reported) Rabeprazole DR (Aciphex) 20 Mg Tablet 20 MG PO DAILY (Reported) As needed Acetaminophen (Acetaminophen) 500 Mg Tablet 500 MG PO BID PRN PRN For Fever ( Reported) Hydrocodone-Acetaminophen 5-325 mg (Hydrocodone-Acetaminophen 5-325 mg) 1 Each Tablet 1-2 TABLET PO Q4H PRN PRN For Moderate Pain Prescribed by: RICO CARROLL MD Lorazepam (Lorazepam) 0.5 Mg Tablet 0.25 MG PO BID PRN PRN For Insomnia ( Reported) Prochlorperazine Maleate (Prochlorperazine) 10 Mg Tablet 10 MG PO PRN For Nausea (Reported) Tramadol (Ultram) 50 Mg Tablet 50 MG PO Q3-4Hrs PRN PRN Pain (Reported) Followup Plan Discharge Diet: No restrictions Discharge Activity: No restrictions Follow-up with PCP in: 2 weeks Time spent 35 mins Rico Carroll MD Mar 30, 2017 14:32
[2017-03-30] MEDS ORDERED: ENOX40DI8 SUBQ (14:33)
--- NOTE | 2017-03-30 14:46 | NUR ---
Social Work- Discharge/ Multidisciplinary Rounds Data: EMR reviewed. Pt discussed in rounds. Pt is medically ready for discharge. T/C to Daniela Yi regarding discharge. Beatriz is agreeable to discharge today. SW Created packet and faxed discharge. Facility arranging transportation for 1530. Pt, daughter, RN, and Daniela Yi all updated and agreeable to plan. Assessment: Pt for whom SNF is medically necessary Plan: Pt to discharge to [facility] for PT with [facility] to follow. Pt to discharge at 1530. Pt, daughter, RN, and Daniela Yi all updated and agreeable to plan. [facility] Addendum: 03/30/17 at 1452 by HORACIO PARHAM SS Pt to discharge at 1600. Daniela Yi arranged transportation [facility]
[2017-03-30] MEDS: LORazepam 0.5 mg Tablet PO PRN (15:31)
--- NOTE | 2017-03-30 16:42 | NUR ---
Discharge Pt. discharged to [facility] via [facility] at 1600 in stable condition. IV dc'd prior to discharge. Report called to Lisa Esteves. Dressings changed earlier today and minimal drainage noted. Family present to transport belongings and irwin. No questions or concerns at this time.
== END 2017-03-30 15:55 | DRG 481 ==
LOC: SED 10:33 → MOC 13:38 → OSC 14:55
PROVIDERS: ADMIT Internal Medicine; ATTEND Internal Medicine
PROC: 0HQGXZZ Repair Left Hand Skin, External Approach (ICD-10-PCS; 2017-03-26)
PROC: 0QS706Z Reposition Left Upper Femur with Intramedullary Internal Fixation Device, Open Approach (ICD-10-PCS; principal; 2017-03-26 16:00)
PROC: 30233N1 Transfusion of Nonautologous Red Blood Cells into Peripheral Vein, Percutaneous Approach (ICD-10-PCS; 2017-03-27)
PROC: 30233N1 Transfusion of Nonautologous Red Blood Cells into Peripheral Vein, Percutaneous Approach (ICD-10-PCS; 2017-03-28)
DX: S72.142A Displaced intertrochanteric fracture of left femur, initial encounter for closed fracture (principal); D62 Acute posthemorrhagic anemia; I10 Essential (primary) hypertension; S61.213A Laceration without foreign body of left middle finger without damage to nail, initial encounter; S61.215A Laceration without foreign body of left ring finger without damage to nail, initial encounter; W01.0XXA Fall on same level from slipping, tripping and stumbling without subsequent striking against object, initial encounter; Y93.H2 Activity, gardening and landscaping; Y92.017 Garden or yard in single-family (private) house as the place of occurrence of the external cause; E03.9 Hypothyroidism, unspecified; M47.892 Other spondylosis, cervical region